=== PATIENT | male | born 1980 | race Caucasian/White ===

== ENCOUNTER 2018-11-03 17:46 | Emergency (ER) | payer MEDICAID ==
[~2018-11-03] VITALS: Ht 172.7 cm; Wt 78.9 kg
[2018-11-03 17:52] VITALS: BP 142/82; PULSE 81; RESP 16; Ht 172.7 cm; Wt 78.9 kg
[2018-11-03] MEDS ORDERED: DIPHTH/TET/ACEL PERTUSS (ADULT) 0.5 ML VIAL IM* ONE (20:00)
--- NOTE | 2018-11-03 20:11 | ERD ---
ER Documentation Chief Complaint Chief Complaint laceration to forehead/ bridge of nose p fall onto concrete today. no KO HPI This is a 38 yo male who presents to the ER with laceration to forehead s/p missing step on stairs and falling onto face on stairs aprox 7 hours primary clinician. Bleeding controlled. Denies KO, no other trauma. No dizziness, no n/v, no blurred vision, clear speech. No chronic medical problems. Last tetanus >5 years. ROS All systems reviewed and are negative except as per history of present illness. Allergies Allergies: Coded Allergies: No Known Allergy (Unverified , 11/03/18) PMhx/Soc Medical and Surgical Hx: pt denies Medical Hx, pt denies Surgical Hx History of Surgery: No Anesthesia Reaction: No Hx Neurological Disorder: No Hx Respiratory Disorders: No Hx Cardiac Disorders: No Hx Psychiatric Problems: No Hx Miscellaneous Medical Probl: No Hx Alcohol Use: No Hx Substance Use: Yes (MARIJUANA) Hx Tobacco Use: Yes Smoking Status: Current every day smoker FmHx Family History: No diabetes, No coronary disease, No other Physical Exam Vitals Vital Signs Date Temp Pulse Resp B/P (MAP) Pulse Ox O2 O2 Flow FiO2 Time Delivery Rate 11/03/18 99.4 81 16 142/82 98 17:52 (102) Physical Exam Const: No acute distress Head: No bruising, no swelling, no hematoma, no crepitus. 3 cm linear laceration between eyebrows, no swelling, no hematoma, no erythema, no bleeding Eyes: Normal Conjunctiva. PERRL, EOMI, no raccoon eyes ENT: Normal External Ears, Nose and Mouth. TM clear BL. Pharynx pink, moist, no oral injury. No aragon signs. Neck: Full range of motion. No meningismus. No cervical spinal tenderness. No lymphadenopathy Resp: Clear to auscultation bilaterally, no rales, rhonchi. Chest rise equal bilaterally. Cardio: Regular rate and rhythm, no murmurs Abd: Soft, non tender, non distended. Normal bowel sounds. No bruising. Skin: No petechiae or rashes, no abrasions, no hematomas. 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 GCS=15 Psych: Normal Mood and Affect Results 24 hrs Current Medications Medications Dose Sig/Pooja Start Time Status Last (Trade) Ordered Route PRN Stop Time Admin Dose Reason Admin Diphtheria/ 0.5 ml ONCE ONCE 11/03/18 DC 11/03/18 Tetanus/Acell IM* 20:00 11/03/18 20:03 Pertussis 20:01 (Adacel) Procedures/MDM PROCEDURES/MDM DIAGNOSTIC IMAGING: Not indicted: Nexus II=0, NexusC= 0 PROCEDURES: Laceration Repair by me: Anesthesia: 1% lidocaine locally Location: Upper nose Tendon/Joint/Nerves: No injury Foreign body: None detected after copious irrigation and exploration Technique: 2 Simple Interrupted Sutures, 6-0 nylon with section of dermabond Complexity: No subcutaneous sutures/mucosal repair/edge excision Post Closure Length: 3 cm -Medications: Pt declines oral pain medication MDM: This is a 38 yo male patient who presents with laceration sustained when hitting head on stair with missing step on stairs. Pt is well appearing, clear speech, no headache, no nausea, no cervical spinal tenderness, no neurological deficits. Laceration superficial and well approximated closed with dermabond, last 0.5 cm required 2 simple sutures. Patient instructed on wound care and return for suture removal in 5 days. The patient presented awake, alert, appropriate, no distress, moving all extremities equally, no bruising, abrasions, or deformities. Traumatic injuries considered include: skull fracture, diffuse axonal injury, cerebral contusion, SDH, traumatic SDH, penetrating injury, spinal cord injury, long bone fracture, abdominal contusion, trauma due to physical abuse. Based on evaluation, this patients head injury is minor in nature. He is felt to be at very low risk of deterioration and can reliably be observed at home. CT scanning of the brain and xrays of skeleton were considered but deferred due to abscence of focal neurological or musculoskeletal findings. Long discussion had with patient regarding signs and symptoms that would be concerning for injury in evolution. He was instructed to return to ER immediately for any alteration in behavior, speech, motor movement, vomiting or any concerns. DISPOSITION and PLAN: RX:None The patient has been discharge home to follow-up with community physician. Patient's bleeding was easily controlled in the department and there is no indication of anemia. No evidence of compartment syndrome, neurologic injury, vascular injury, open joint, tendon laceration, or foreign body. Patient is appropriate for outpatient follow up. 48 hour wound check. Scar minimization instructions given. Departure Diagnosis: Primary Impression: Laceration Condition: Stable Patient Instructions: Laceration, Face, Suture Or Tape (Child) Additional Instructions: Thank you very much for allowing us to participate in your care. Your health and safety is our top priority at [facility]. Call your primary care doctor TOMORROW for an appointment during the next 2-4 days and bring all the information and medications prescribed. Have prescriptions filled and follow precisely the directions on the label. If the symptoms get worse and your provider is unavailable, return to the Emergency Department immediately. Have sutures removed in 5 days Do not put any ointment or anything on area worse skin glue is applied Keep wound clean and dry MESERET GONGORA NP Nov 03, 2018 20:11
== END 2018-11-03 20:18 | disposition home or self-care (01) ==
LOC: FTE 17:46
DX: S01.21XA Laceration without foreign body of nose, initial encounter (principal); F17.210 Nicotine dependence, cigarettes, uncomplicated; W18.39XA Other fall on same level, initial encounter; Y92.9 Unspecified place or not applicable; Z23 Encounter for immunization
CPT/HCPCS: 12013; 90471; 90715; Z7502

== ENCOUNTER 2018-11-22 15:07 | Emergency (ER) | payer MEDICAID ==
[~2018-11-22] VITALS: Ht 177.8 cm; Wt 79.2 kg
[2018-11-22 15:22] VITALS: BP 115/84; PULSE 68; RESP 18; Ht 177.8 cm; Wt 79.2 kg
[2018-11-22] MEDS ORDERED: ACET-141 PO (16:57)
--- NOTE | 2018-11-22 22:14 | ERD ---
ER Documentation Chief Complaint Chief Complaint right ankle injury 1 year ago. right ankle pain cont ROS All systems reviewed and are negative except as per history of present illness. Medications Home Meds Active Scripts Acetaminophen* (Acetaminophen*) 500 MG Extra Strength Tablet, 500 MG PO Q4H PRN for PAIN AND OR ELEVATED TEMP, #30 TAB Prov:SHAGGY KENDRICK DO 11/22/18 Allergies Allergies: Coded Allergies: No Known Allergy (Unverified , 11/03/18) PMhx/Soc History of Surgery: No Anesthesia Reaction: No Hx Neurological Disorder: No Hx Respiratory Disorders: No Hx Cardiac Disorders: No Hx Psychiatric Problems: No Hx Miscellaneous Medical Probl: No Hx Alcohol Use: No Hx Substance Use: Yes (MARIJUANA) Hx Tobacco Use: Yes Physical Exam Vitals Vital Signs Date Temp Pulse Resp B/P (MAP) Pulse Ox O2 O2 Flow FiO2 Time Delivery Rate 11/22/18 98.1 68 18 115/84 98 15:22 (94) Physical Exam Const: No acute distress Head: Atraumatic Eyes: Normal Conjunctiva ENT: Normal External Ears, Nose and Mouth. Neck: Full range of motion. No meningismus. Resp: Clear to auscultation bilaterally Cardio: Regular rate and rhythm, no murmurs Abd: Soft, non tender, non distended. Normal bowel sounds Skin: No petechiae or rashes Back: No midline or flank tenderness Ext: No cyanosis, or edema Neur: Awake and alert Psych: Normal Mood and Affect Departure Diagnosis: Primary Impression: Right ankle pain Chronicity: chronic Qualified Codes: M25.571 - Pain in right ankle and joints of right foot; G89.29 - Other chronic pain Condition: Fair Patient Instructions: Treating Ankle Sprains Referrals: PENDING SALE TO [facility] YOU HAVE RECEIVED A MEDICAL SCREENING EXAM AND THE RESULTS INDICATE THAT YOU DO NOT HAVE A CONDITION THAT REQUIRES URGENT TREATMENT IN THE EMERGENCY DEPARTMENT. FURTHER EVALUATION AND TREATMENT OF YOUR CONDITION CAN WAIT UNTIL YOU ARE SEEN IN YOUR DOCTORS OFFICE WITHIN THE NEXT 1-2 DAYS. IT IS YOUR RESPONSIBILITY TO MAKE AN APPOINTMENT FOR FOLOW-UP CARE. IF YOU HAVE A PRIMARY DOCTOR --you should call your primary doctor and schedule an appointment IF YOU DO NOT HAVE A PRIMARY DOCTOR YOU CAN CALL OUR PHYSICIAN REFERRAL HOTLINE AT IF YOU CAN NOT AFFORD TO SEE A PHYSICIAN YOU CAN CHOSE FROM THE FOLLOWING [facility] [address] [facility] [address] [facility] [address] [facility] [address] [facility] [address] [facility]. [facility] [address] Additional Instructions: Llame al doctor MAANA y belkys brandy MILTON PARA DENTRO DE 1-2 FLETCHER.Dgale a la secretaria que nosotros le instruimos hacer esta milton.Avise o llame si aveyr condicin se empeora antes de la milton. Regresa aqui si peor o no mejor. SHAGGY KENDRICK DO Nov 22, 2018 22:14
== END 2018-11-22 16:58 | disposition home or self-care (01) ==
LOC: E/R 15:07
DX: M25.571 Pain in right ankle and joints of right foot (principal); G89.29 Other chronic pain
CPT/HCPCS: 73610; Z7502